=== PATIENT | female | born 1985 | race African-American/Black ===

== ENCOUNTER 2017-10-14 12:12 | Observation (INO) | payer SELFPAY ==
[~2017-10-14] VITALS: Ht 172.7 cm; Wt 125.2 kg
[2017-10-14] MEDS ORDERED: MULTIVITAMINS1 EAC3 PO (12:33)
[2017-10-14 13:05] LABS: BASOPHILS % 0.3 % (0.0-1.0); EOSINOPHILS # (AUTO) 0.1 (0.0-0.4); EOSINOPHILS % 2.1 % (0.0-6.0); HEMATOCRIT 25.8 % (34.2-44.1); LYMPHOCYTES # (AUTO) 1.2 (1.0-3.2); LYMPHOCYTES % 18.2 % (18.0-39.1); MEAN CORPUSCULAR HEMOGLOBIN 19.6 pg (28-32); MEAN CORPUSCULAR HGB CONC 29.5 g/dL (31-35); MEAN CORPUSCULAR VOLUME 66.7 fL (81-99); MONOCYTES # (AUTO) 0.7 (0.2-0.8); MONOCYTES % 10.1 % (4.4-11.3); NEUTROPHILS # (AUTO) 4.7 (2.1-6.9); PLATELET COUNT 355 x10e3/uL (140-360); RED BLOOD COUNT 3.87 x10e6/uL (3.6-5.1); RED CELL DISTRIBUTION WIDTH 20.6 % (11.7-14.4)
[2017-10-14 13:07] LABS: BILIRUBIN,URINE NEGATIVE (NEGATIVE); CLARITY,URINE CLEAR (CLEAR); COLOR,URINE AMBER (YELLOW); KETONES,URINE NEGATIVE (NEGATIVE); LEUKOCYTE ESTERASE ,URINE NEGATIVE (NEGATIVE); NITRITE,URINE NEGATIVE (NEGATIVE); PROTEIN,URINE DIPSTICK NEGATIVE (NEGATIVE); URINE UROBILINOGEN 0.2 mg/dL (0.2 - 1)
[2017-10-14 13:08] LABS: PREGNANCY TEST, URINE NEGATIVE (NEGATIVE)
[2017-10-14 13:13] LABS: HEMOGLOBIN 7.6 g/dL (12.0-16.0)
[2017-10-14 13:29] LABS: ALANINE AMINOTRANSFERASE 50 IU/L (0-55); ALBUMIN 4.2 g/dL (3.5-5.0); ALBUMIN/GLOBULIN RATIO 1.2 (0.8-2.0); ALKALINE PHOSPHATASE 52 IU/L (40-150); ANION GAP 18.4 mmol/L (8-16); BLOOD UREA NITROGEN 10 mg/dL (7-26); BUN/CREATININE RATIO 14 (6-25); CALCIUM 9.4 mg/dL (8.4-10.2); CARBON DIOXIDE 21 mmol/L (22-29); CHLORIDE 104 mmol/L (98-107); EST GLOMERULAR FILTRATION RATE > 60 ML/MIN (60-); GLUCOSE 85 mg/dL (74-118); POTASSIUM 3.4 mmol/L (3.5-5.1); SODIUM 140 mmol/L (136-145)
[2017-10-14 13:31] LABS: AMORPHOUS SEDIMENT,URINE FEW (FEW); BACTERIA,URINE RARE /HPF; EPITHELIAL CELLS,URINE MODERATE /LPF
[2017-10-14] MEDS ORDERED: SODIUM CHLORIDE 0.9% 250ML 250 ML IV ONE ×2 (14:45→18:15)
[2017-10-14] MEDS ORDERED: SODIUM CHLORIDE FLUSH 10 ML SYR INJ PRN (14:45)
[2017-10-14] MEDS ORDERED: ACETAMINOPHEN 325 MG TAB PO ONE (16:00)
[2017-10-14 16:32] LABS: EOSINOPHILS % (MANUAL) 2 % (0-7); LYMPHOCYTES % (MANUAL) 11 % (19-48); MONOCYTES % (MANUAL) 12 % (3.4-9.0); NEUTROPHILS % (MANUAL) 75 % (40-74)
[2017-10-14 16:35] LABS: ANISOCYTOSIS SLIG; MICROCYTOSIS SLIGHT; POIKILOCYTOSIS SLIGHT; POLYCHROMASIA FEW
[2017-10-14 16:36] LABS: PLATELET ESTIMATE SLIGHTLY INCREASED; PLATELET MORPHOLOGY COMMENT FEW GIANT
[2017-10-14 17:21] VITALS: BP 141/79
[2017-10-14 17:55] VITALS: BP 141/79
[2017-10-14 20:27] VITALS: BP 120/69
[2017-10-14 23:56] VITALS: BP 113/59
[2017-10-15 04:03] VITALS: BP 112/70
[2017-10-15 06:28] LABS: BASOPHILS % 0.6 % (0.0-1.0); EOSINOPHILS # (AUTO) 0.2 (0.0-0.4); EOSINOPHILS % 2.5 % (0.0-6.0); HEMATOCRIT 32.1 % (34.2-44.1); HEMOGLOBIN 9.7 g/dL (12.0-16.0); LYMPHOCYTES % 27.7 % (18.0-39.1); MEAN CORPUSCULAR HEMOGLOBIN 20.8 pg (28-32); MEAN CORPUSCULAR HGB CONC 30.2 g/dL (31-35); MEAN CORPUSCULAR VOLUME 68.9 fL (81-99); MONOCYTES # (AUTO) 0.8 (0.2-0.8); MONOCYTES % 11.4 % (4.4-11.3); NEUTROPHILS # (AUTO) 4.2 (2.1-6.9); NEUTROPHILS % 57.5 % (38.7-80.0); PLATELET COUNT 404 x10e3/uL (140-360); RED BLOOD COUNT 4.66 x10e6/uL (3.6-5.1); RED CELL DISTRIBUTION WIDTH 21.3 % (11.7-14.4)
[2017-10-15 07:50] VITALS: BP 129/72
[2017-10-15 08:02] LABS: ANISOCYTOSIS SLIGHT; MICROCYTOSIS SLIGHT; PLATELET ESTIMATE ADEQUATE; PLATELET MORPHOLOGY COMMENT NORMAL; POIKILOCYTOSIS SLIGHT; RBC MORPHOLOGY COMMENT NORMAL
[2017-10-15 11:32] VITALS: BP 125/72
[2017-10-15 15:41] VITALS: BP 126/74
[2017-10-15] MEDS ORDERED: DEXAMETHASONE PHOS 10MG INJ 20 MG in SODIUM CHLORIDE 0.9% 50ML 50 ML IV ONE (17:00)
--- NOTE | 2017-10-15 17:27 | Consultation ---
DATE OF CONSULTATION: October 15, 2017 Mckenzie Chacko is a 32-year-old black female referred to me for evaluation of anemia. No history of hematochezia, melena, hematuria, hematemesis or hemoptysis. However, the patient does have dysfunctional uterine bleeding. The patient had gastric sleeve approximately a month back. SOCIAL HISTORY: Noncontributory. FAMILY HISTORY: Noncontributory. ALLERGIES: NONE. MEDICATIONS: At this time, none. REVIEW OF SYSTEMS: HEENT: Normal. CARDIAC: Normal. RESPIRATORY: Normal. GI: Gastric sleeve. : The patient has excessive menstrual cycle. MUSCULOSKELETAL: Normal. SKIN AND BREASTS: Normal. NEUROENDOCRINE: Normal. The patient claims that she had 2 blood transfusions so far in succession within a few months. PHYSICAL EXAMINATION: GENERAL: A large-built female, very anemic. No palpable adenopathy. HEART: Within normal limits. LUNGS: Clear. BREASTS: Deferred at request. ABDOMEN: Obese. There is no hepatosplenomegaly. RECTAL AND VAGINAL EXAM: Deferred. CENTRAL NERVOUS SYSTEM: Normal. EXTREMITIES: Essentially normal. LABORATORY DATA: Shows a hemoglobin of 7.6, hematocrit 24.8. MCV low at 66.7, MCHC low at 29.5. RDW high at 20.6. White count 6700. Platelets are reported at 355,000. The patient has been transfused to 9.7. Chemistry shows a sodium of 140, potassium 3.4, chloride 74, CO2 21, BUN 10, creatinine 0.7. Glucose 85, calcium 9.4. Bilirubin 0.5. SGOT 26, SGPT 50, alkaline phosphatase 52. Total protein 7.7, albumin 4.2, globulins 3.2. Urinalysis shows a few bacteria. IMAGING: Not available for review. IMPRESSION: 1. Iron deficiency anemia. 2. Hypokalemia. 3. Urinary tract infection. 4. History of gastric sleeve. 5. History of dysfunctional uterine bleeding. PLAN, COMMENTS AND SUGGESTIONS: Suggest a thorough GI and workup. I suggest CAT scan. Suggest Infed. Suggest B12. I will confine myself to hematology. Infed after this test dose could be given as outpatient in my office. Thank you very much for allowing me to participate in management of this patient. I will confine myself to hematology. Job#: [id number] cc:LACHO THOMSON MD cc:IRMA THOMSON MD
[2017-10-15] MEDS ORDERED: DIPHENHYDRAMINE HCL INJ 25 MG in SODIUM CHLORIDE 0.9% 50ML 50 ML IV ONE (17:30)
[2017-10-15] MEDS ORDERED: SODIUM CHLORIDE 0.9% 250ML 250 ML ONE (17:47)
[2017-10-15] MEDS ORDERED: FAMOTIDINE INJ 20 MG in SODIUM CHLORIDE 0.9% 50ML 50 ML IV ONE (18:00)
[2017-10-15] MEDS ORDERED: IOPAMIDOL 370 MG/ML 200 ML INFUS..BTL INJ ONE (18:42)
[2017-10-15] MEDS ORDERED: SODIUM CHLORIDE 0.9% 50ML 50 ML ONE (18:42)
--- NOTE | 2017-10-15 18:55 | Diagnostic Imaging Report ---
PROCEDURE: CT ABDOMEN AND PELVIS WITH CONTRAST TECHNIQUE: The abdomen and pelvis were scanned utilizing a multidetector helical scanner from the diaphragm to the lesser trochanter after the IV administration of 100 cc of Isovue 370 and the oral administration of water. Coronal and sagittal multiplanar reformations were obtained. COMPARISON: None. INDICATIONS: ANEMIA FINDINGS: LOWER THORAX: Lung bases are clear. HEPATOBILIARY: Normal hepatic size and contour. No focal hepatic lesions. No biliary ductal dilation. The gallbladder is unremarkable. SPLEEN: No splenomegaly. PANCREAS: No focal masses or ductal dilatation. ADRENALS: No adrenal nodules. KIDNEYS/URETERS: No hydronephrosis, stones, or solid mass lesions. PELVIC ORGANS/BLADDER: Bladder, uterus and ovaries are unremarkable. Moderate amount of fluid in the endometrial cavity. PERITONEUM / RETROPERITONEUM: No free air or fluid. LYMPH NODES: No lymphadenopathy. VESSELS: Celiac trunk, superior and inferior mesenteric, and bilateral renal arteries are patent. Portal, superior mesenteric, and splenic veins are patent. GI TRACT: Postoperative changes in the stomach which may represent sleeve procedure. No bowel dilation or evidence of obstruction. No pericolonic inflammatory changes. No wall thickening. BONES AND SOFT TISSUES: No acute bony abnormalities. No lytic or blastic lesions. Tiny fat-containing abdominal hernia. Soft tissues are otherwise unremarkable. IMPRESSION: 1. Essentially unremarkable CT abdomen and pelvis. Eddie Granado M.D. Dictated by: Eddie Granado M.D. on 10/15/2017 at 19:02 Electronically approved by: Eddie Granado M.D. on 10/15/2017 at 19:02
[2017-10-15] MEDS ORDERED: IRON DEXTRAN INJ 50 MG in SODIUM CHLORIDE 0.9% 100 ML IV ONE (19:00)
[2017-10-15] MEDS ORDERED: IRON DEXTRAN INJ 500 MG in SODIUM CHLORIDE 0.9% 500ML 500 ML IV ONE (20:00)
[2017-10-15 20:13] VITALS: BP 129/58
[2017-10-16 00:22] VITALS: BP 108/60
[2017-10-16 04:00] VITALS: BP 134/64
[2017-10-16 08:35] VITALS: BP 128/62
--- NOTE | 2017-12-02 09:02 | Discharge Summary ---
CHIEF COMPLAINT: Anemia. FINAL DIAGNOSES 1. Anemia, iron deficiency. 2. Obesity. 3. Status post gastric sleeve. PROCEDURES: Transfusion of packed cells. DISPOSITION: Home. This 32-year-old female with a known history of recurrent iron deficiency anemia due to heavy menstrual periods presented to the ER with a 1-day history of dizziness and blurred vision. Also complains of dyspnea upon exertion. Underwent recent gastric sleeve placement. Lost approximately 45 pounds so far. She has had 2 prior blood transfusions. Underwent review and evaluation in the ER. She was found to be anemic once again. The patient was admitted to the facility for treatment regarding iron deficiency anemia recurrent and generalized weakness. Will be set up for transfusion. The patient will be typed and cross-matched for packed RBCs. Will also be requesting a hematology follow during her admission. With her admission, she was being seen by Dr. Mendez, hematology. After evaluating the labs and reviewing the patient, his impression was iron deficiency anemia, hypokalemia, urinary tract infection, history of gastric sleeve, history of dysfunctional urinary bleeding. Suggested CAT scan. Suggested INFeD. Suggested B12. Patient was originally admitted to [facility] and received routine [facility] protocol orders and a cardiac diet. Was started on IV fluids. Vital signs were stable. Laboratory studies were showing potassium of 3.4. Following the 2 units of packed cells, her hemoglobin was 9.7. White cell count was normal. Further labs remained the same. CT of the abdomen was performed. Findings were unremarkable. Patient was cleared for discharge and was able to be released on 10/16/2017 in stable condition. With her discharge, she will continue on a diet as tolerated. No equipment or supplies necessary. No drains or [place] needed. Activity level is as directed by myself as well as by Dr. Mendez. Instructed to follow up with Dr. Mendez on an outpatient basis regarding outpatient IV INFeD. She will also be continued on a multivitamin, calcium, iron, minerals. It was noted she does not have a documented PCP on her demographic sheet. If she so chooses, she may follow up with me in my office within 2 weeks. Dictated By: KATHERYN Tejeda Job#: [id number]
== END 2017-10-16 11:04 | disposition home or self-care (01) ==
LOC: ER 12:12 → ERHOLD 14:59 → IMCU 16:22 → MED/SURG 10-15 17:42
DX: D50.9 Iron deficiency anemia, unspecified (principal); E87.6 Hypokalemia; N39.0 Urinary tract infection, site not specified; Z98.84 Bariatric surgery status; R53.1 Weakness; N92.0 Excessive and frequent menstruation with regular cycle; N93.8 Other specified abnormal uterine and vaginal bleeding; E66.9 Obesity, unspecified
CPT/HCPCS: 36430; P9016; 36415; 74177; 80053; 81001; 81025; 85025; 85045; 86850; 86900; 86920; 87086; 96365; 96366; 99284; G0378; J1100; J1200; J1750; J7040; J7050; Q9967